=== PATIENT | male | born 1990 | race African-American/Black ===

== ENCOUNTER 2024-05-21 08:35 | Emergency (ER) | payer MEDICAID, OTHER ==
[~2024-05-21] VITALS: Ht 175.3 cm; Wt 126.3 kg
[2024-05-21 09:51] VITALS: BP 159/108; PULSE 85; RESP 18; TEMP 99.3; O2SAT 99
[2024-05-21] MEDS: guaiFENesin 200 MG/10 ML UD PO PRN (12:01)
[2024-05-21] MEDS: ALBUTEROL SULF HFA 90MCG INH 200DOSE IN SCH (14:00)
[2024-05-21] MEDS ORDERED: GUAI100S6 PO (16:13)
[2024-05-21] MEDS ORDERED: ALBU1AER6 IN (16:13)
== END 2024-05-21 16:19 | disposition home or self-care (01) ==
LOC: ER 08:35
DX: R05.9 Cough, unspecified (principal); R06.2 Wheezing
CPT/HCPCS: 71046; 99283; A4618